=== PATIENT | female | born 1935 | race Caucasian/White ===

== ENCOUNTER 2017-04-08 02:04 | Inpatient (IN) | payer OTHER ==
[~2017-04-08] VITALS: Ht 160 cm; Wt 60.3 kg
[~2017-04-08 02:04] MED LIST: BENAZEPRIL HCL5 MG PO; INDAPAMIDE1.25 M1 PO; LEVOTHYROXINE75 MCG PO; VITAMIN B-121000 MC3 PO; VITAMIN D31000 UNI1 PO
[2017-04-08] MEDS ORDERED: AMLODIPINE BESY10 M1 PO (07:03)
--- NOTE | 2017-04-08 10:20 | Admission Core Measures ---
Admission Meds I reviewed the following Meds: Current Medications Sig/Jeanette Start time Last Medication Dose Stop Time Status Admin Ropivacaine 500 ML ONCE ONE 04/08 0930 AC (NAROPIN) 04/10 1129 ON-Q Ball 1 BAG Vancomycin HCl 1,000 MG ONCE 04/08 0000 NR Sodium Chloride 250 ML 04/08 2359 (Normal Saline 0.9%) Acute Coronary Syndrome Inclusion Criteria ACS Diagnosis No Inpatient Core Measures LDL Reminder: If No, please order W/I first 24hr of stay Congestive Heart Failure Inclusion Criteria CHF Diagnosis No Cerebrovascular accident Inclusion Criteria CVA/TIA Diagnosis No Inpatient Core Measures Bedside Swallow Eval Reminder: If BSE failed, place ST order Antithrombotic Reminder: Order Antithrombotic Medication by end of day 2 Antithrombotic Reminder: Document Reason Antithrombotic Not ordered by end of day 2 AFIB/Flutter Reminder: If Present, add to problem list AFIB/Flutter Reminder: Order Anticoag Medication for pts with AFIB/Flutter Atherosclerosis Reminder: If Present, add to problem list LDL Reminder: If No, please order W/I first 24hr of stay PT Order Reminder: If No, please order Venous thromboembolism Inpatient Core Measures VTE Risk Factors: Age > 40, Surgery No [facility] VTE prophylaxis d/t No contraindications No VTE Pharm Prophylaxis d/t No contraindications Inclusion Criteria - Per Current guidelines, there needs to be overlap - treatment for the first 5 days of Warfarin therapy. - Parenteral Anticoagulation (IV or SC) needs to be - given along with Warfarin therapy. VTE Diagnosis No VTE Type NONE VTE Confirmed by (Test) NONE Problem List As ranked by this Provider includes Assessment & Plan 1. Status post total left knee replacement HOME MEDS Home Med List Amlodipine Besylate 10 MG TABLET 2 TAB PO DAILY HEART HEALTH (Reported) Benazepril HCl 5 MG TABLET 2 TAB PO DAILY BP (Reported) Cholecalciferol (Vitamin D3) (Vitamin D3) 1,000 UNIT CAPSULE 1 CAP PO DAILY SUPP (Reported) Cyanocobalamin (Vitamin B-12) 1,000 MCG TABLET 1 TAB PO DAILY SUPP (Reported) Levothyroxine Sodium 75 MCG TABLET 1 TAB PO DAILY THYROID (Reported)
--- NOTE | 2017-04-08 10:27 | Surgical Discharge Summary ---
Visit Information Visit Dates Admission Date: 04/08/17 Discharge Date: 04/11/17 History of Present Illness Chief Complaint: s/p Left Total Knee Replacement Medical History Neurological: seizure Cardiovascular: hypertension, hyperlipidemia, RBBB Gastrointestinal: esophagitis Musculoskeletal: gout Endocrine: hypothyroidism Surgical History Pertinent Surgical History: knee replacement, thyroidectomy Review of Systems: see H&P Hospital Course Course Attending Physician: CARLOS DOHERTY,NIKKIE Primary Care Physician: ZACHERY CHRISTIAN MD Hospital Course: Patient was admitted to [facility] for elective surgery on 04/08/2017 and underwent left total knee replacement. The patient tolerated the procedure well, without complications. The postoperative course was complicated by mild confusion which resolved within 24hrs. Eliquis was was used for DVT prophylaxis. Pain was well controlled with oral pain medication, tolerated a regular diet, and voiding without difficulty. The patient was evaluated by physical therapy during admission, was deemed stable from a medical standpoint, and was discharged. Allergies: Coded Allergies: No Known Allergies (04/05/17) NKA PER ANTIBIOTIC ORDER SHEET OF 04/05/17 ([facility]) Significant Procedures: 04/08/2017 left total knee replacement Disposition Summary Disposition Principal Diagnosis: Left knee DJD/osteoarthritis Additional Diagnosis: Same Discharge Disposition: home or self care Discharge Instructions General Discharge Information Code Status: Full Code Patient's Diet: Heart healthy Patient's Activity: You may ambulate as desired with rolling walker. Avoid strenuous activity and heavy lifting, pushing, or pulling. No driving while using narcotics. Follow-Up Instructions/Appts: Avoid bathing, but you may shower as desired. Dry dressing change once daily. Please follow-up with Nikkie Melendrez MD at 2 weeks postop. Please report any of the following symptoms to MadanDStephanie: Fever greater than 101, redness around the incision, drainage from the wound, chest pain, shortness of breath. Medications at Discharge Discharge Medications: Stop taking the following medications: Aspirin (Aspirin*) 81 MG TAB.CHEW ORAL DAILY Continue taking these medications: Levothyroxine Sodium (Levothyroxine Sodium) 75 MCG TABLET 1 Tablet ORAL DAILY Comments: Last Taken:04/11/17 Time:6AM Benazepril HCl (Benazepril HCl) 5 MG TABLET 2 Tablet ORAL DAILY Comments: Last Taken: Time:ALTERNATIVE MED GIVEN IN THE HOSPITAL Cholecalciferol (Vitamin D3) (Vitamin D3) 1,000 UNIT CAPSULE 1 Capsule ORAL DAILY Comments: Last Taken:04/11/17 Time:10AM Cyanocobalamin (Vitamin B-12) 1,000 MCG TABLET 1 Tablet ORAL DAILY Comments: Last Taken:04/11/17 Time:10AM Amlodipine Besylate (Amlodipine Besylate) 10 MG TABLET 2 Tablet ORAL DAILY Comments: Last Taken:04/11/17 Time:10AM Pantoprazole Sodium (Pantoprazole Sodium) 40 MG TABLET.DR 1 Tablet ORAL DAILY Comments: Last Taken:04/11/17 Time:6AM Start taking the following new medications: Oxycodone HCl/Acetaminophen (Percocet 5-325 MG Tablet) 5 MG-325 MG TABLET 1-2 Tablet ORAL EVERY 4 HOURS NEEDED as needed for PAIN Qty = 30 No Refills Comments: Last Taken:04/11/17 Time:5AM Apixaban (Eliquis) 2.5 MG TABLET 1 Tablet ORAL TWICE DAILY Days = 30 No Refills Comments: Last Taken:04/11/17 Time:9AM Docusate Sodium (Colace) 100 MG CAPSULE 1 Capsule ORAL TWICE DAILY Days = 7 No Refills Instructions: HOLD FOR LOOSE BM'S Comments: Last Taken: Time:Last Taken: 04/11/17 Time:9AM
--- NOTE | 2017-04-08 10:29 | Patient Discharge Instructions ---
Discharge Instructions General Discharge Information You were seen/treated for: Left knee DJD/osteoarthritis You had these procedures: Left total knee replacement Watch for these problems: Fever greater than 101, excessive drainage from the wound, redness, chest pain, shortness of breath. Do not soak the wound: Yes No bath, but you may shower: Yes Other wound care: Avoid bathing, but you may shower as desired. Dry dressing change once daily. Special Instructions: continue your anticoagulation with eliquis until further instructed. Diet Continue normal diet: Yes Recommended Diet: Heart Healthy Activity Full Activity/No Limits: No Activity Self Limited: Yes Activity Limited to: Weight bear as tolerated Other activity limits: You may ambulate as desired with rolling walker. Avoid strenuous activity and heavy lifting, pushing, or pulling. No driving while using narcotics. Acute Coronary Syndrome Inclusion Criteria At DC or during hospital stay patient has or had the following: ACS DIAGNOSIS No Discharge Core Measures Meds if any: Prescribed or Continued at Discharge Meds if any: NOT Prescribed or Continued at Discharge Congestive Heart Failure Inclusion Criteria At DC or during hospital stay patient has or had the following: CHF DIAGNOSIS No Discharge Core Measures Meds if any: Prescribed or Continued at Discharge Meds if any: NOT Prescribed or Continued at Discharge Cerebrovascular accident Inclusion Criteria At DC or during hospital stay patient has or had the following: CVA/TIA Diagnosis No Discharge Core Measures Meds if any: Prescribed or Continued at Discharge Meds if any: NOT Prescribed or Continued at Discharge Venous thromboembolism Inclusion Criteria VTE Diagnosis No VTE Type NONE VTE Confirmed by (Test) NONE Discharge Core Measures - Per Current guidelines, there needs to be overlap - treatment for the first 5 days of Warfarin therapy. - If discharged on Warfarin prior to 5 days of - overlap therapy, the patient will need to be - assessed for post discharge needs including - *Post discharge parental anticoagulation - *Warfarin and/or parental anticoagulation education - *Follow up date to check INR post discharge At least 5 days overlap therapy as Inpatient No Meds if any: Prescribed or Continued at Discharge Note: Overlap Therapy is Warfarin and Anticoagulant Meds if any: NOT Prescribed or Continued at Discharge
--- NOTE | 2017-04-08 10:30 | Operative Report ---
Operative/Inv Procedure Report Surgery Date: 04/08/17 Name of Procedure: Left total knee arthroplasty Pre-Operative Diagnosis: Left knee primary osteoarthritis Post-Operative Diagnosis: Same Estimated Blood Loss: scant Surgeon/Form Designer: IGNATIUS. Khurram GONZALEZ MD, PA Anesthesia: block Implants: Rubi triathlon total knee system-size 5 femur, size 4 tibia, 9 mm polyethylene cruciate retaining, 33 patella Drains: None Specimens: Femoral, tibial, patellar bone Microbiology: Urine Tourniquet: 66 minutes Complications: None Condition: Stable Operative Indication: Patient is an 82-year-old woman who has a long history of left knee pain. She's been diagnosed with osteoarthritis. She underwent conservative measures including medications, therapy, cortisone injection, Synvisc injection with only short-term relief. She wished to proceed with total knee arthroplasty since symptoms were interfere with normal activities of daily living. Risks benefits and expectations were discussed which included but were not limited to persistent knee pain, need for subsequent surgery, infection, DVT, injury to blood vessel or nerve,, anesthesia risks. She wished to proceed with total knee arthroplasty Operative/Procedure Note Note: Patient was brought to the operating room and transferred to the operating room table. Once under appropriate anesthesia the left lower extremity was prepped and draped in standard fashion. Preoperative IV antibiotics were given prophylactically. Patient was under the TXA protocol. The left lower extremity was elevated exsanguinated and tourniquet was inflated. Standard anterior incision was made for anticipated medial parapatellar approach. Dissection was taken down to the retinaculum. A medial retinacular approach was used with a minimal extension into the quadriceps tendon. There were end-stage general changes of medial compartment and moderate degenerative changes a lateral patellofemoral compartment. Dissection was taken medially to release the medial structures for balancing purposes. A portion of the fat pad was removed. Remnants of the medial and lateral meniscal tissues were excised. Remnants of the ACL was excised. Retractors were placed. I then used a drill to enter the intramedullary canal for the intramedullary guide for the femoral cut. 6 valgus cut was chosen. The cut was made while protecting the soft tissues. The femur was incised to a size 5. Of note, patient had a significantly wide anterior to posterior femoral orientation but not as wide from medial to lateral. A size 4 would notch the femur and would cause tightness posteriorly in flexion if we were to move the peg holes anteriorly. Therefore the size 5 was chosen. There did not appear to be any overhanging medial laterally either. Therefore proceeded to pin the cutting guide in position. I then made the 4 cuts. This was done while protecting the soft tissues. I was satisfied with the femoral preparation. PCL was recessed. A posterior retractor was placed in addition to the medial lateral retractors. I then used the external tibial alignment guide and pin the cutting block in position for a neutral cut from medial to lateral and reproducing patient's posterior slow-paced on preoperative templating and intraoperative measurements. The cut was made. I sized the tibia to a size 4. I did a trial reduction with a size 9 mm insert. I was satisfied with the stability after debriding some osteophyte formations medially. I then measured the patellar thickness and cut the appropriate thickness and replaced it with a size 33 patella. The 3 lug holes were drilled. I was satisfied with the patellar tracking as well as the stability in full extension mid flexion and full flexion to gravity. Marked my tibial rotation. I then drilled the 2 lug holes for the femur. All this was removed from the knee and then I finished preparation of the tibial punch. Once this was completed copious irrigation of the knee followed. I used the anterior chamfer bone to plug the distal femoral hole from the intramedullary guide. This would minimize postoperative hemarthrosis and postoperative knee swelling. Once copious irrigation was completed and the cement was ready to be applied it was applied to the dry clean bony surfaces of the tibia. The size 4 tibial bone was impacted in place and excess cement was removed with curettes. Cement was applied to the dry clean bony surfaces of distal femur. The size 5 femur was impacted in place and excess cement was removed with curettes. The 9 mm insert was applied and the knee was taken out to full extension easily. Cement was applied to the dry clean bony surfaces of the patella. The size 33 patella was impacted in place and excess cement was removed with knife. Once the cement hardened I took the knee through range of motion. Small pieces of excess cement were removed using osteotome. I was satisfied with the stability with a 9 mm good soft tissue balancing in full extension mid flexion and full flexion to gravity. Copious irrigation the knee followed. I removed the trial component and applied the definitive size 9 mm cruciate retaining polyethylene after confirming that there were no soft tissue, bone fragments or cement fragments within the tibial tray. The locking mechanism was confirmed. Tourniquet was deflated at 66 minutes. Hemostasis was obtained. No drain was necessary. I then closed soft tissue layers with interrupted #1 Vicryl suture for the medial parapatellar approach this was followed by 2 layer closure with a 2-0 Vicryl and a 3-0 Vicryl suture with the knee in flexion for the skin. Appropriate just his were applied and patient was awakened and taken the recovery room in good condition. No intraoperative complications. Blood loss was minimal. Discharge Disposition: PACU
[2017-04-08] MEDS ORDERED: PANTOPRAZOLE SO40 M1 PO (10:32)
[2017-04-08] MEDS ORDERED: ASPIRIN81 M4 PO (10:34)
[2017-04-08 12:00] VITALS: BP 100/58
--- NOTE | 2017-04-08 12:33 | NUR ---
PT ARRIVED TO FLOOR AT 1159 VIA STRETCHER FROM PACU. A&OX3. ROOM AIR, VITAL SIGNS STABLE. DENIES PAIN (0/10) AT THIS TIME. ON Q PUMP IN PLACE IN L ADDUCTOR CANAL, VALDEZ CATHETHER PRESENT. ORIENTED TO CALL REN AND ROOM. SAFETY MAINTAINED, NEEDS IN REACH.
--- NOTE | 2017-04-08 12:43 | PN- Orthopedic ---
Subjective Subjective: POST-OP NOTE: No complaints. Pain controlled at this time. Tolerating clears. No nausea. Not yet out of bed. No dizziness. No shortness of breath. No chest pains. Objective Vital Signs and I&Os Vital Signs Date Time Temp Pulse Resp B/P B/P Pulse O2 O2 Flow FiO2 Mean Ox Delivery Rate 04/08 1200 98.2 68 18 100/58 94 Room Air Physical Exam: General - alert & oriented x 3. comfortable. no acute distress. Lungs - clear bilaterally. no w/r/r. Cardiac - s1s2. reg. Abdomen - soft. nontender. - zhang draining clear, yellow urine. Extremities - warm bilaterally. no c/c/e. calves soft and nontender b/l. left knee dressing c/d/i. ice pack over left knee. on q in place. nvi. Current Medications: Current Medications Sig/Jeanette Start time Last Medication Dose Route Stop Time Status Admin Acetaminophen 650 MG Q4P PRN 04/08 1230 UNVr PO Amlodipine Besylate 20 MG DAILY 04/09 1000 UNVr PO Apixaban 2.5 MG BID 04/08 2200 UNVr PO Cholecalciferol 1,000 IU DAILY 04/09 1000 UNVr PO Cyanocobalamin 1,000 MCG DAILY 04/09 1000 UNVr PO Dextrose/Sodium 1,000 ML .[id number] 04/08 1230 UNVr Chloride IV Docusate Sodium 100 MG BID 04/08 1015 UNVr PO Levothyroxine Sodium 0.075 MG DAILY 04/09 1000 UNVr PO Lisinopril 10 MG DAILY 04/09 1000 UNVr PO Morphine Sulfate 2 MG Q3P PRN 04/08 1230 UNVr IV Omeprazole 40 MG DAILY AC 04/09 0700 UNVr PO Ondansetron HCl 4 MG Q6P PRN 04/08 1230 UNVr IV Oxycodone/ 1 TAB Q4P PRN 04/08 1230 UNVr Acetaminophen PO Oxycodone/ 2 TAB Q4P PRN 04/08 1230 UNVr Acetaminophen PO Polyethylene Glycol 17 GM DAILY 04/09 1000 UNVr PO Ropivacaine 500 ML ONCE ONE 04/08 0930 AC ON-Q Ball 1 BAG INJ 04/10 1129 Vancomycin HCl 1,000 MG ONCE ONE 04/08 2000 UNir Sodium Chloride 250 ML IV 04/08 2059 Vancomycin HCl 1,000 MG ONCE 04/08 0000 DC Sodium Chloride 250 ML IV 04/08 5294 Assessment/Plan Assessment/Plan This 82 year old white female with hx htn, hypothyroidism, gerd, is POD#0 s/p left total knee arthroplasty for left knee primary osteoarthritis advance diet as tolerated pain control as ordered vanco x 1 dose post-op eliquis bid - dvt ppx PT eval zhang overnight, to be removed in the morning f/u am labs home meds ordered d/c planning will d/w Core Measures/Miscellaneous Venous Thromboembolism VTE Risk Factors: Age > 40, Surgery VTE Contraindications: No Contraindications VTE Diagnosis: No VTE Type: NONE VTE Confirmed by (Test): NONE Beta Megan Is Beta Megan a Home Med? No Antibiotics Is Patient on Antibiotics? Yes If Yes: prophylaxis
[2017-04-08 13:56] VITALS: BP 102/54
[2017-04-08 16:00] VITALS: BP 102/60
[2017-04-08] MEDS ORDERED: COLACE100 M1 PO (16:51)
[2017-04-08] MEDS ORDERED: ELIQUIS2.5 M1 PO (16:51)
[2017-04-08] MEDS ORDERED: PERCOCET 5-3251 EACH PO (16:51)
[2017-04-08 18:00] VITALS: BP 117/64
[2017-04-08 22:00] VITALS: BP 120/60
[2017-04-09 03:30] VITALS: BP 106/54
[2017-04-09 06:57] VITALS: BP 112/70
--- NOTE | 2017-04-09 07:28 | PN- Orthopedic ---
See Addendum Subjective Subjective: Reports pain controlled. Tolerating diet. No nausea. Denies shortness of breath. No chest pains. No dizziness. Objective Vital Signs and I&Os Vital Signs Date Time Temp Pulse Resp B/P B/P Pulse O2 O2 Flow FiO2 Mean Ox Delivery Rate 04/09 0657 97.3 58 20 112/70 95 Room Air 04/09 0330 97.8 53 20 106/54 97 Room Air 04/08 2200 98.2 74 20 120/60 94 Room Air 04/08 1800 97.9 75 20 117/64 94 Room Air 04/08 1600 97.9 65 20 102/60 93 Room Air 04/08 1428 Room Air Room Air 04/08 1426 98 Room Air 04/08 1356 97.6 71 18 102/54 94 Room Air 04/08 1200 98.2 68 18 100/58 94 Room Air Intake & Output 04/09 0800 04/09 0000 04/08 1600 04/08 0800 04/08 0000 04/07 1600 Intake Total 700 400 450 Output Total 500 200 150 Balance 200 200 300 Intake, IV 600 300 150 Intake, Oral 100 100 300 Output, Urine 500 200 150 Patient 133 lb Weight Physical Exam: General - alert & oriented x 3. comfortable. no acute distress. Lungs - clear bilaterally. no w/r/r. Cardiac - s1s2. reg. Abdomen - soft. nontender. - zhang draining clear, yellow urine. Extremities - warm bilaterally. no c/c/e. left knee dressing c/d/i. on q in place. nvi. calves soft and nontender b/l. Assessment/Plan Assessment/Plan This 82 year old white female with hx htn, hypothyroidism, gerd, is POD#1 s/p left total knee arthroplasty for left knee primary osteoarthritis tolerating diet d/c iv fluids d/c zhang catheter vanco x 1 dose post-op completed eliquis bid - dvt ppx continue PT f/u am labs home meds ordered dressing change tomorrow, POD#2 d/c planning will d/w Core Measures/Miscellaneous Venous Thromboembolism VTE Risk Factors: Age > 40, Surgery VTE Contraindications: No Contraindications VTE Diagnosis: No VTE Type: NONE VTE Confirmed by (Test): NONE Beta Megan Is Beta Megan a Home Med? No Antibiotics Is Patient on Antibiotics? Yes If Yes: prophylaxis
[2017-04-09 08:30] LABS: ABSOLUTE BASOPHIL COUNT 0 /CUMM (0.0-0.2); ABSOLUTE EOSINOPHIL COUNT 0 /CUMM (0.0-0.7); ABSOLUTE GRANULOCYTE CT 8.3 /CUMM (1.4-6.5); ABSOLUTE LYMPH COUNT 0.8 /CUMM (1.2-3.4); ABSOLUTE MONOCYTE COUNT 0.8 /CUMM (0.10-0.60); BASOPHIL % 0.2 % (0.0-2.0); EOSINOPHIL % 0.1 % (0-5); HEMATOCRIT 35.7 % (37-47); MEAN CORPUSCULAR HGB 32.2 PG (27.0-31.0); MEAN CORPUSCULAR HGB CONC 33.6 G/DL (33.0-37.0); MEAN PLATELET VOLUME 10.6 FL (7.4-10.4); PLATELET COUNT 148 /CUMM (130-400); RBC DISTRIBUTION WIDTH 13.4 % (11.5-14.5); RED BLOOD CELL CT 3.72 /CUMM (4.20-5.40); WHITE BLOOD CELL COUNT 9.9 /CUMM (4.8-10.8)
[2017-04-09 09:00] LABS: GRANULOCYTE % 83.7 % (42.2-75.2)
[2017-04-09 14:21] VITALS: BP 120/76
[2017-04-09 17:51] VITALS: BP 122/62
[2017-04-09 22:03] VITALS: BP 124/70
--- NOTE | 2017-04-10 01:30 | NUR ---
LATE ENTRY NURSING NOTE: PT ON Q PUMP RUNNING AT 14ML/HR. WRITTEN ORDER IN CHART FOR 10ML/HR. NO DOCUMENTATION TO WHEN ON Q PUMP INCREASED. THIS RN DECREASED ON Q TO 10ML/HR.
[2017-04-10 02:10] VITALS: BP 122/70
--- NOTE | 2017-04-10 06:38 | NUR ---
LATE ENTRY NURSING NOTE: WHEN RN ROUNDED ON PT @ 0500, RN NOTED PT HAD REMOVED ENTIRE SURGICAL DRESSING TO L KNEE. PT A&OX3 - ANSWERING ALL QUESTIONS APPROPRIATELY BUT APPEARS FORGEFUL. PER PT, SHE REMOVED DRESSING BECAUSE "IT WAS TOO TIGHT". [employer] CUELLAR NOTIFIED. PER PA, SWAB SURGICAL SITE WITH BETADINE AND COVER W ABD PAD AND SPANDAGE. NEW DRESSING IN PLACE. PT RESTING COMFORTABLE.
[2017-04-10 06:45] VITALS: BP 132/60
--- NOTE | 2017-04-10 07:19 | PN- Orthopedic ---
See Addendum Subjective Subjective: Nursing reports the patient removed her dressing and some of the steri strips overnight. Apparently she was confused, although the patient reports the dressing was "painful" causing her to remove it. Tolerating diet. No nausea. Doing well with PT, with plans to go home. Voiding well. No bm yet. Objective Vital Signs and I&Os Vital Signs Date Time Temp Pulse Resp B/P B/P Pulse O2 O2 Flow FiO2 Mean Ox Delivery Rate 04/10 0645 97.8 65 20 132/60 95 Room Air 04/10 0210 98.7 61 20 122/70 93 Room Air 04/09 2203 98.7 60 20 124/70 92 Room Air 04/09 1751 97.6 77 20 122/62 98 Room Air 04/09 1421 97.7 78 20 120/76 98 04/09 0813 110/68 04/09 0813 118/68 Intake & Output 04/10 0800 04/10 0000 04/09 1600 04/09 0800 04/09 0000 04/08 1600 Intake Total 371 641 8202 700 400 450 Output Total 600 200 500 500 200 150 Balance -400 -10 1000 200 200 300 Intake, IV 10 600 300 150 Intake, Oral 012 605 1639 100 100 300 Output, Urine 600 200 500 500 200 150 Patient 133 lb Weight Assessment/Plan Assessment/Plan This 82 year old white female with hx htn, hypothyroidism, gerd, is POD#2 s/p left total knee arthroplasty for left knee primary osteoarthritis tolerating diet pain controlled with percocet eliquis bid - dvt ppx continue PT dressing changed on q removed by patient d/c planning will d/w Core Measures/Miscellaneous Venous Thromboembolism VTE Risk Factors: Age > 40, Surgery VTE Contraindications: No Contraindications VTE Diagnosis: No VTE Type: NONE VTE Confirmed by (Test): NONE Beta Megan Is Beta Megan a Home Med? No Antibiotics Is Patient on Antibiotics? Yes If Yes: prophylaxis
[2017-04-10 10:00] VITALS: BP 125/68
[2017-04-10 16:31] VITALS: BP 132/70
--- NOTE | 2017-04-10 20:17 | NUR ---
NURSING NOTE: PT LEFT FLOOR VIA STRETCHER BY DISTRIBUTION FOR XRAY PT A&OX3, ON ROOM AIR, VSS, PAIN MEDS GIVEN PRIOR TO LEAVING FLOOR. TICKET TO RIDE SIGNED. AWAIT RETURN TO FLOOR.
[2017-04-10 21:56] VITALS: BP 134/70
[2017-04-11 06:18] VITALS: BP 120/60
--- NOTE | 2017-04-11 07:51 | RADIOLOGY REPORT ---
EXAMINATION: XR KNEE, LEFT CLINICAL INFORMATION: Status post left total knee replacement. Evaluate hardware COMPARISON: None TECHNIQUE: Four views of the left knee. FINDINGS: Prosthetic components of the left total knee arthroplasty are appropriately aligned. No periprosthetic fracture. Gas from recent surgery is present in the joint and surrounding soft tissues. A joint effusion is present. Diffuse soft tissue swelling. Vascular calcifications noted. IMPRESSION: Appropriate alignment of the left total knee arthroplasty.
[2017-04-11 08:03] VITALS: BP 124/62
--- NOTE | 2017-04-11 08:16 | PN- Orthopedic ---
Subjective Subjective: Minimal pain, no acute events overnight, no further confusion. She requests be discharged home, does not wish to go to rehabilitation. No fever or flulike illness. Objective Vital Signs and I&Os Vital Signs Date Time Temp Pulse Resp B/P B/P Pulse O2 O2 Flow FiO2 Mean Ox Delivery Rate 04/11 0803 124/62 04/11 0802 124/64 04/11 0618 98.3 69 19 120/60 95 Room Air 04/10 2156 98.9 72 18 134/70 96 Room Air 04/10 1631 97.9 81 16 132/70 97 Room Air 04/10 1000 98.2 98 20 125/68 98 04/10 0829 150/82 04/10 0829 150/82 Intake & Output 04/11 1600 04/11 0800 04/11 0000 04/10 1600 04/10 0800 04/10 0000 Intake Total 119 402 0835 200 190 Output Total 450 600 200 Balance 088 018 2810 -400 -10 Intake, IV 10 Intake, Oral 640 662 9490 200 180 Output, Urine 450 600 200 Physical Exam: Well-developed well-nourished no apparent distress. HEENT: Atraumatic, extraocular motion intact Neck: Supple, no lymphadenopathy Respiratory: No respiratory distress Extremities: No edema LEFT lower extremity dressing in place, Incision line is clean dry and intact with minimal bloody drainage. No signs of infection. Mild joint effusion New Steri-Strips applied to the distal portion of the incision Range of motion is 0-60. Neurovascularly intact distally Bilateral calves are supple, nontender. Neuro: Alert and oriented x3 Psych: Mood affect normal, normal memory normal judgment. Skin: Warm and dry, no rash on exposed skin Assessment/Plan Assessment/Plan POD #3 status post left total knee arthroplasty Orthopedically stable Plan for discharge home today with [facility] services Continue anticoagulation with Eliquis fup as out pt. Core Measures/Miscellaneous Venous Thromboembolism VTE Risk Factors: Age > 40, Surgery VTE Contraindications: No Contraindications VTE Diagnosis: No VTE Type: NONE VTE Confirmed by (Test): NONE Beta Megan Is Beta Megan a Home Med? No Antibiotics Is Patient on Antibiotics? Yes If Yes: prophylaxis
== END 2017-04-11 13:28 | disposition home health service (06) | DRG 470 ==
LOC: SDA 02:04 → 2NA 02:04 → CANRESERV 10:18 → ENRESERV 10:18 → ENTRNSPT 11:37 → EDTRNSPTSTS 11:53 → 2NA 12:00 → CMPTRNSPT 12:28 → ENPENDDIS 04-11 08:57 → 2NA 04-11 13:28
PROVIDERS: Physician Assistant Surgical; ADMIT Orthopaedic Surgery
PROC: 0SRD0J9 Replacement of Left Knee Joint with Synthetic Substitute, Cemented, Open Approach (ICD-10-PCS; principal; 2017-04-08)
PROC: 3E0T3CZ (ICD-10-PCS; 2017-04-08)
DX: M17.12 Unilateral primary osteoarthritis, left knee (principal); I10 Essential (primary) hypertension; E78.5 Hyperlipidemia, unspecified; E03.9 Hypothyroidism, unspecified; K21.9 Gastro-esophageal reflux disease without esophagitis; M10.9 Gout, unspecified
CPT/HCPCS: 2NASP; 73562-LT; 82436; 87086; 97110-GO; 97116-GO; 97161-GP; 97530-GO; C1713; J0171; J1885; J2405; J2795; J3370; J7040; J7042